=== PATIENT | female | born 1980 | race Caucasian/White ===

== ENCOUNTER 2022-04-25 10:24 | Emergency (ER) | payer MEDICARE, MEDICAID ==
[~2022-04-25] VITALS: Ht 157.5 cm; Wt 64.5 kg
[~2022-04-25 10:24] MED LIST: BUPR-94 PO; OXCA150T5 PO
[2022-04-25 11:08] VITALS: BP 141/98
[2022-04-25 11:34] LABS: CLARITY,URINE SLIGHTLY CLOUDY (Clear); COLOR,URINE YELLOW (Yellow); GLUCOSE, URINE NEGATIVE (Neg); KETONES,URINE NEGATIVE (Neg); LEUKOCYTE ESTERASE ,URINE NEGATIVE (Neg); NITRITES, URINE NEGATIVE (Neg); OCCULT BLOOD,URINE TRACE-INTACT (Neg); PH,URINE 6.5 (4.8-8.0); PROTEIN,URINE NEGATIVE (Neg); UROBILINOGEN,URINE 0.2 E.U/dL (0.2-1.0)
[2022-04-25 11:35] LABS: URINE HCG NEGATIVE (NEG)
[2022-04-25 11:36] LABS: UA COLLECTION TYPE CLN CATCH MIDSTREAM
[2022-04-25 11:40] LABS: RBC,URINE 0-2 /HPF (0-2); SQUAMOUS EPITHELIAL CELL,UR MODERATE /LPF (FEW); WBC,URINE 0-4 /HPF (0-4)
[2022-04-25 11:41] LABS: BACTERIA,URINE 1+ /HPF (Neg)
[2022-04-25 11:44] LABS: BASOPHILS % (AUTO) 0.4 % (0-1); EOSINOPHILS # (AUTO) 0.1 X10'3 (0-0.9); EOSINOPHILS % (AUTO) 1.3 % (0-6); HEMATOCRIT 40.1 % (35.0-45.0); HEMOGLOBIN 13.4 g/dl (12.0-16.0); LYMPHOCYTES # (AUTO) 1.8 X10'3 (1.1-4.8); LYMPHOCYTES % (AUTO) 22.5 % (21-51); MEAN CORPUSCULAR HEMOGLOBIN 28.6 PG (27.0-31.0); MEAN CORPUSCULAR HGB CONC 33.5 g/dL (33.0-36.5); MEAN CORPUSCULAR VOLUME 85.2 FL (78-98); MEAN PLATELET VOLUME 8.1 FL (7.4-10.4); MONOCYTES # (AUTO) 0.6 X10'3 (0-0.9); MONOCYTES % (AUTO) 8.3 % (2-12); NEUTROPHILS # (AUTO) 5.3 X10'3 (1.8-7.7); NEUTROPHILS % (AUTO) 67.5 % (42-75); PLATELET COUNT 318 X10'3 (140-440); RED CELL DISTRIBUTION WIDTH 14.1 % (11.5-14.5); WHITE BLOOD COUNT 7.8 X10'3 (4.5-11.0)
[2022-04-25 12:00] LABS: ALANINE AMINOTRANSFERASE 18 U/L (12-78); ALBUMIN 4.2 G/DL (3.4-5.0); ALBUMIN/GLOBULIN RATIO 1.2 (1.1-1.5); ALKALINE PHOSPHATASE 55 IU/L (46-116); ANION GAP 9 (8-16); ASPARTATE AMINO TRANSFERASE 12 U/L (10-37); BILIRUBIN,TOTAL 0.2 MG/DL (0.1-1.0); BLOOD UREA NITROGEN 8 MG/DL (7-18); CALCIUM 9.1 MG/DL (8.5-10.1); CHLORIDE 103 MMOL/L (99-107); GLUCOSE 61 MG/DL (70-104); POTASSIUM 3.4 MMOL/L (3.5-5.1); SODIUM 141 MMOL/L (135-145); TOTAL CARBON DIOXIDE 29.4 MMOL/L (24-32); TOTAL PROTEIN 7.8 G/DL (6.4-8.2); eGFR 80 ML/MIN
[2022-04-25] MEDS ORDERED: CIPR-202 PO (12:06)
== END 2022-04-25 12:13 | disposition home or self-care (01) ==
LOC: ER 10:24
DX: N39.0 Urinary tract infection, site not specified (principal); Z88.2 Allergy status to sulfonamides; Z79.899 Other long term (current) drug therapy; Z88.5 Allergy status to narcotic agent; Z88.1 Allergy status to other antibiotic agents
CPT/HCPCS: 36415; 80053; 81001; 81025; 85025; 99283

== ENCOUNTER 2025-08-07 09:59 | Emergency (ER) | payer MEDICARE, MEDICAID ==
[~2025-08-07] VITALS: Ht 160 cm; Wt 68.0 kg
--- NOTE | 2025-08-07 10:44 | Physician Documentation ---
History of Present Illness ~ Chief Complaint: Urinary Symptoms Stated Complaint: UTI Time Seen by MD: 10:39 HPI The patient is a 45-year-old female with no significant past medical history who presents with urinary frequency and burning that began two days ago. She has been taking some [id number] azo and ibuprofen but her symptoms have gotten worse. She denies chills and fever. Medication Reconciliation Allergies: Coded Allergies: Sulfa (Sulfonamide Antibiotics) (Verified Allergy, Unknown, 08/07/25) codeine (Verified Allergy, Unknown, 08/07/25) erythromycin base (Verified Allergy, Unknown, 08/07/25) Scheduled Bupropion Hcl (Wellbutrin Xl), 300 PO QAM, (Reported) Oxcarbazepine (Trileptal), 600 PO BID, (Reported) Past Medical History Past Medical History: No Pertinent History Past Surgical History: noncontributory Drug Use: none Lives with: Family Lives In: Home Occupation: employed Review of Systems ROS [employer] system review is negative except as noted in the HPI. Physical Exam Vital Signs: Temperature: 98.5, Source: Temporal, Heart Rate: 78, Respiratory Rate: 18, BP: 143/105, Pulse Oximetry: 98, Weight: 68.000 Oxygen Flow Rate: 0 Physical Exam Physical Exam Vitals and nursing note reviewed. Constitutional: General: Patient is awake, alert, oriented x 4 in no acute distress and well appearing. Speech is clear and lucid. Appearance: Normal appearance. Patient is not ill-appearing, toxic-appearing or diaphoretic. HENT: Head: Normocephalic and atraumatic. Mouth/Throat: Mouth: Mucous membranes are moist. Pharynx: Oropharynx is clear. Eyes: General: No scleral icterus. Extraocular Movements: Extraocular movements intact. Pupils: Pupils are equal, round, and reactive to light. Neck: Supple, no Kernig or Brudzinski sign. Cardiovascular: Rate and Rhythm: Normal rate and regular rhythm. Heart sounds: No murmur heard. Pulmonary: Effort: No respiratory distress. Breath sounds: No wheezing, rhonchi or rales. Abdominal: General: There is no distension. Palpations: There is no fluid wave, hepatomegaly or mass. Tenderness: Suprapubic tenderness without guarding.. Musculoskeletal: General: No swelling or deformity. Skin: Coloration: Skin is not jaundiced. Findings: No erythema or rash. Neurological: Mental Status: Patient is alert. Progress Results/Orders Results/Orders Orders - MARIA LYNN MD Cult Urine + [address] (08/07/25 11:16) Completed Orders - MARIA LYNN MD Hcg, Ur Ql (08/07/25 10:45) Ua W/Microscopic, Cult If Ind (08/07/25 10:04) Vital Signs 08/07/25 08/07/25 08/07/25 10:02 10:32 11:06 Temp 98.5 Pulse 96 78 68 Resp 18 18 18 B/P (MAP) 167/98 143/105 (118) 141/99 (113) Pulse Ox 99 98 99 O2 Flow Rate 0 0 0 Laboratory Tests Test 08/07/25 10:04 Urine Specimen Description Cln catch midstream Urine Color Yellow Urine Clarity Clear Urine pH 5.5 Urine Specific [place] <=1.005 Urine Protein Negative Urine Glucose (UA) Negative Urine Ketones Negative Urine Occult Blood Trace-intact Urine Nitrite Negative Urine Bilirubin Negative Urine Urobilinogen 0.2 Urine Leukocyte Esterase Small H Urine RBC 0-2 Urine WBC 0-4 Urine Squamous Epithelial Cells Few Urine Bacteria None seen Urine Mucus None seen Urine Culture Indicated Indicated Volume Urine Centrifuged 10 ml Urine HCG, Qualitative Negative Urine Comment Microbiology Date/Time Source Procedure Growth Status 08/07/25 11:16 Urine Clean Catch Midstream Urine Culture - Preliminary Culture received. Resulted Medical Decision Making Additional information obtaine: N/A Findings The patient's urine is quite dilute but there is still small leukocyte esterase on dip and she is symptomatic. I am going to treat her for UTI. Urinary Diff Dx:Considerations: Include: UTI; Unlikely: AAA, , Aortic dissection, Appendicitis, Bowel obstruction, Cholelithiasis, Choleangitis, DJD, Ectopic , Hepatitis, HNP, Impaction, Intrauterine , Musculoskeletal pain, Ovarian torsion, Pancreatitis, PID, Post-Op complication, Pyelonephritis, Renal failure, Strain, Urinary Obstruction, Urolithiasis, Urinary retention, Vaginitis, Other Genital Diff Dx:Considerations: Unlikely: -Complete, - Incomplete, -Inevitable, Ablortion-Missed, -Threatened, Abruptio placentae, Bartholin abscess, Bartholin cyst, Blood loss anemia, Constipation, Cervicitis, Dsymenorrhea, Ectopic , Foreign body, Hormonal, Hidradenitis suppurativa, Intrauterine , Menorrhagia, Menometrorrhagia, Menstrual bleeding, Myomatous uterus, Perianal abscess, Physiologic discharge, Pinworms, PID, Placenta previa, , Precipitous Hct, Trauma, UTI, Vaginitis(osis)-Atrophic, Vaginitis, Vaginitis(osis)-Bacterial, Vaginitis(osis)- Candidal, Vaginitis(osis)-Contact, Vaginitis(osis)-Herpes, Vaginitis(osis)- Trich., Other Departure Disposition: HOME / SELF CARE / HOMELESS Impression: Primary Impression: Acute urinary tract infection Condition: Stable Discharge Instructions: Urinary Tract Infection, Adult Additional Instructions: It is important to see your doctor or primary care provider. Emergency care may be incomplete without proper follow-up. Symptoms sometimes change or new symptoms might arise after you leave the emergency department. It is important that you call your doctor if you become worse in any way, or return to the emergency department. You are strongly urged to follow-up with your physician to assure complete and thorough care. Please call your doctor's office today, and informed them that you were seen in the emergency department, and that you need to be seen immediately for close follow-up. If you do not have a primary care doctor we encourage you to proactively seek a local physician for close follow-up. Consider local clinics, [facility], or local [facility]. Prior to discharge we spoke at length concerning symptoms that would merit reevaluation, but please return to the emergency department for any symptoms that are concerning to you, and we will be happy to continue your evaluation and treatment. Please note you can always return to the emergency department if you are having difficulty coordinating close follow-up. If medications were prescribed, you should fill them at your local pharmacy immediately and take only as prescribed. Bring your new medications to your doctors follow-up visit to discuss any changes that would be necessary. Please check [employer] for any results you did not receive in the Emergency Department: often we are unable to get all your tests back before you leave, and these tests need to be reviewed by your PCP and yourself. You can also call Medical Records if you are unable to access the internet to see MyChart. Return to the emergency department immediately for worsening chest pain, difficulty breathing, sweating, or other concerning emergent symptoms. Referrals: NO PRIMARY CARE PROVIDER (PCP) Prescriptions Cephalexin*Monohydrate* (Keflex*) 500 Mg Capsule 1 CAP PO BID, #20 CAP Prov: MARIA LYNN MD 08/07/25 Education Educated: Patient Educated regarding: diagnosis, treatment, prognosis, need for follow up Signature Scribe Signature: . Attestation: . MARIA LYNN MD Aug 07, 2025 10:44
[2025-08-07 11:10] LABS: LEUKOCYTE ESTERASE ,URINE SMALL (Neg); NITRITES, URINE NEGATIVE (Neg); OCCULT BLOOD,URINE TRACE-INTACT (Neg)
[2025-08-07 11:15] LABS: UA COLLECTION TYPE CLN CATCH MIDSTREAM
[2025-08-07 11:16] LABS: MUCUS STRANDS NONE SEEN /LPF (Neg); SQUAMOUS EPITHELIAL CELL,UR FEW /LPF (FEW)
[2025-08-07 11:19] LABS: URINE HCG NEGATIVE (NEG)
[2025-08-07] MEDS ORDERED: CEPH-585 PO (13:14)
[2025-08-07 13:15] VITALS: BP 135/87; PULSE 75; RESP 16; O2SAT 96
[2025-08-07 13:24] VITALS: TEMP 98.5
== END 2025-08-07 13:26 | disposition home or self-care (01) ==
LOC: ER 09:59
DX: N39.0 Urinary tract infection, site not specified (principal); Z88.1 Allergy status to other antibiotic agents; Z88.2 Allergy status to sulfonamides; Z88.5 Allergy status to narcotic agent; Z79.899 Other long term (current) drug therapy
CPT/HCPCS: 81001; 81025; 87077; 87088; 87186; 99283